=== PATIENT | female | born 1975 | race Hispanic/Latino ===

== ENCOUNTER 2025-01-14 12:42 | Emergency (ER) | payer OTHER ==
--- OUTSIDE RECORDS SUMMARY | 2025-01-14 12:46 | XMS REPORT | Continuity of Care Document ---
Author Name Unknown Address [address] [place] [address] [address] [place] [address] [facility] Address [address] [facility]. [address] [place] [address] Care Team Providers Care Lab Assistant Name Role Phone PCP, PATIENT DOES NOT HAVE A Primary Care Physic purnima Unavailable MILAN CORTEZ Attending Clinician Unavailable MILAN CORTEZ Attending Clinician Unavailable Milan Cortez MD Attending Clinician [phone] Gisselle Alvarez MD Attending Clinician MILAN CORTEZ Admitting Clinician Unavailable Payers Payer Name Policy Type Policy Number Effective Date Expirati on Date Source Problems Condition Name Condition Details Condition Category Status Onset Date Resolution Date Last Treatment Date Treating Clinician Comments Source Obesity (BMI 30-39.9) Obesity (BMI 30-39.9) Disease Active 24 00:00: 00 [facility] Septic shock Septic shock Disease Active 07-30 00:00: 00 [facility] Encounter for chemothera py management Encounter for chemothera py management Disease Active 06-04 00:00: 00 [facility] Malignant neoplasm of cervix, FIGO 2018 IIIC1 Malignant neoplasm of cervix, FIGO 2018 IIIC1 Disease Active 06-04 00:00: 00 [facility] Allergies, Adverse Reactions, Alerts Allergy Name Allergy Type Status Severity Reaction(s) Onset Date Inactive Date Treating Clinician Comments Source OPIOIDS - MORPHINE ANALOGUE S Drug Class Active High ITCHING 12-07 00:00: 00 [facility] Opioids - Morphine Analogue s Drug Allergy Active Rash 12-07 00:00: 00 [facility] Opioids - Morphine Analogue s Drug Allergy Active Rash 1-31 00:00: 00 [facility] Hydrocod one Propensi ty to adverse reaction s Active Nausea and/or Vomiting 07-17 00:00: 00 [facility] HYDROCOD ONE DRUG INGREDI Active N/V 9- 00:00: 00 [facility] PENICILL INS Drug Class Active Rash 15 00:00: 00 [facility] Penicill ins Propensi ty to adverse reaction s Active Rash 05-21 00:00: 00 [facility] Penicill ins Propensi ty to adverse reaction s Active Rash 05-21 00:00: 00 [facility] Social History Social Habit Start Date Stop Date Quantity Comments Source Sexual orientation [facility] History of tobacco use Cigarette Smoker [facility] Alcoholic beverage intake 2024-10-24 00:00:00 2024-10-24 00:00:00 Ex-drinker (finding) [facility] History of Social function 2020-06-12 00:00:00 2020-06-12 00:00:00 [facility] Alcohol intake 2019-12-10 00:00:00 2019-12-10 00:00:00 Ex-drinker (finding) [facility] Cigarettes smoked current (pack per day) - Reported 2019-06-05 00:00:00 2019-06-05 00:00:00 [facility] Cigarette pack-years 2019-06-05 00:00:00 2019-06-05 00:00:00 [facility] Tobacco use and exposure 2019-06-05 00:00:00 2019-06-05 00:00:00 Smokeless tobacco non-user [facility] Sex assigned at 1975 00:00:00 1975 00:00:00 [facility] Smoking Status Start Date Stop Date Source Ex-smoker 2019-06-05 00:00:00 2019-06-05 00:00:00 [facility] Medications Ordered Medication Name Filled Medication Name Start Date Stop Date Current Medication? Ordering Clinician Indication Dosage Frequency Signature (SIG) Comments Components Source maalox/diph enhydrAMINE :lidocaine2 %viscous 1:1:1: suspension (COMPOUNDED ) 2023-11 10:45: 00 10-24 10:44 :00 No 15mL 15 mL, Oral, ONCE, 1 dose, On Tue10/24/24 at 0445, Routine [facility] iopamidol (ISOVUE 370-500 mL) injection 80 mL 2023-11 09:00: 00 10-24 09:00 :00 No [id number] 80mL 80 mL, Intravenou s, ONCE, 1 dose, On Tue10/24/24 at 0300, Routine [facility] ketorolac (TORADOL) injection 30 mg 2023-11 08:15: 00 10-24 07:34 :00 No 30mg 30 mg, Slow IV Push, ONCE, 1 dose, On Tue10/24/24 at 0215, Routine [facility] dicyclomine (BENTYL) injection 20 mg 2023-11 08:15: 00 10-24 07:34 :00 No 20mg 20 mg, Intramuscu lar, ONCE, 1 dose, On Tue10/24/24 at 0215, Routine [facility] ketorolac 10 mg tablet 2023-11 00:00: 00 Yes [id number] 10mg Take 1 tablet by mouth every 6 (six) hours as needed for Pain (scale 7-10). [facility] dicyclomine 20 mg tablet 2023-11 00:00: 00 Yes [id number] 20mg Take 1 tablet by mouth every 6 (six) hours as needed for Abdominal pain. [facility] ondansetron (ZOFRAN) 4 mg tablet 2023-11 00:00: 00 Yes [id number] 4mg Take 1 tablet by mouth every 8 (eight) hours as needed for Nausea and Vomiting (N/V). [facility] pantoprazol e (PROTONIX) 40 mg EC tablet 2023-11 00:00: 00 Yes [id number] 40mg Take 1 tablet by mouth in the morning. [facility] No known medications No Un casandra [facility] Vital Signs Vital Name Observation Time Observation Value Comments S ourpierre Systolic blood pressure 2024-10-24 10:38:00 122 mm[Hg] [facility] Diastolic blood pressure 2024-10-24 10:38:00 89 mm[Hg] [facility] Heart rate 2024-10-24 10:38:00 77 /min [facility] Body temperature 2024-10-24 10:38:00 36.67 Maria E [facility] Respiratory rate 2024-10-24 10:38:00 16 /min [facility] Oxygen saturation in Arterial blood by Pulse oximetry 2024-10-24 10:38:00 100 /min [facility] Body height 2024-10-24 06:52:00 154.9 cm [facility] Body weight 2024-10-24 06:52:00 56.7 kg [facility] BMI 2024-10-24 06:52:00 23.62 kg/m2 [facility] Procedures Procedure Date / Time Performed Performing Clinicia n Source URINALYSIS 2024-10-24 09:40:00 Milan Cortez [facility] CT ABDOMEN PELVIS W CONTRAST 2024-10-24 08:13:30 Milan Cortez [facility] LIPASE 2024-10-24 06:59:00 Milan Cortez [facility] COMP. METABOLIC PANEL (78487) 2024-10-24 06:59:00 Milan Cortez [facility] CBC WITH DIFF 2024-10-24 06:59:00 Milan Cortez [facility] Encounters Start Date/Time End Date/Time Encounter Type Admission Type Attending Clinicians Care Facility Care Department Encounter ID Source 2024-10-24 00:50:00 2024-10-24 04:49:00 Emergency X MILAN CORTEZ W[facility] ERT [id number] [facility] 2024-10-24 00:50:00 2024-10-24 04:49:00 Emergency Milan Cortez [facility] [id number] [facility] 2024-10-24 00:50:00 2024-10-24 00:50:00 Emergency X MILAN CORTEZ W[facility] ERT [id number] [facility] 2021-07-07 00:00:00 2021-07-07 00:00:00 Telephone Gisselle Alvarez [facility] [id number] [facility] Results Test Description Test Time Test Comments Results Result Comments Source CT Abdomen pelvis w contrast 2024-10-07 8 09:16:33 ORDERING PHYSICIAN: MILAN CORTEZ ABDOMEN AND PELVIS CT WITH CONTRAST. DATE: ?10/24/2024 3:13 AM CLINICAL INDICATIONS: ?Abdominal pain, acute, nonlocalized TECHNIQUE: ?Axial computed tomographic images of the abdomen and pelviswere obtained after administration of 100 mL of Omnipaque 350intravenously. CT scan was performed according to ALARA (As Low asReasonably Achievable). COMPARISON: ?None. Abdomen findings: The lung bases are clear. The cardiac apex isunremarkable. Bilateral breast implants are identified. A 1.2 cm hypodense lesion is identified within segment 4 of the liver whichis poorly characterized on this study. This may result from a hemangioma.No intrahepatic biliary ductal dilation or contour nodularity is present.Gallstones are identified the gallbladder. The spleen, pancreas, adrenal glands and kidneys have unremarkable contrastenhanced appearance. The stomach, small bowel and colon demonstrate no evidence for obstructionor inflammation. A normal appendix is present in the right lower quadrant. No adenopathy or free fluid are identified in the abdomen. No acute osseousabnormality is demonstrated. Pelvis findings: The small bowel and colon are normal caliber. The urinarybladder demonstrates no abnormality. The uterus and ovaries have anunremarkable appearance. No adenopathy or free fluid are identified in thepelvis. No acute osseous abnormality is demonstrated. [facility] [id number] 07:28:20* Test Item Value Reference Range Interpretation Comme nts LIPASE (test code = 3545411238) 209 U/L 0-220 Lab Interpretation (test cod e = 82843-3) Normal [facility] [id number] 07:17:57* Test Item Value Reference Range Interpretation Comme nts WBC (test code = 6690-2) 7.48 4.30-11.10 RBC (test code = 789-8) 4.21 3.93-5.25 HGB (test code = 718-7) 12.4 g/dL 11.6-15.0 HCT (test code = 4544-3) 38.1 % 35.7-45.2 MCV (test code = 787-2) 90.5 fL 80.6-95.5 MCH (test code = 785-6) 29.5 pg 25.9-32.8 MCHC (test code = 786-4) 32.5 g/dL 31.6-35.1 RDW-SD (test code = 56765-2) 42.3 fL 39.0-49.9 RDW-CV (test code = 788-0) 12.8 % 12.0-15.5 PLT (test code = 777-3) 383 166-358 H MPV (test code = 32550-1) 8.2 fL 9.5-12.9 L NRBC/100 WBC (test code = 1107763369) 0.0 0.0-10.0 NRBC x10^3 (test code = 5617417457) See_Comment [Automated [employer] ge] The system which generated this result transmitted reference range: 10*3/?L. The reference range was not used to interpret this result as normal/abnormal. GRAN MAT (NEUT) % (test code = 770-8) 62.3 % IMM GRAN % (test code = 9700585560) 0.30 % LYMPH % (test code = 736-9) 27.7 % MONO % (test code = 5905-5) 6.4 % EOS % (test code = 713-8) 2.8 % BASO % (test code = 706-2) 0.5 % GRAN MAT x10^3(ANC) (test code = 1039204329) 4.66 10*3/uL 1.88-7.09 IMM GRAN x10^3 (test code = 0513397811) 0.00-0.06 LYMPH x10^3 (test code = 731-0) 2.07 10*3/uL 1.32-3.29 MONO x10^3 (test code = 742-7) 0.48 10*3/uL 0.33-0.92 EOS x10^3 (test code = 711-2) 0.21 10*3/uL 0.03-0.39 BASO x10^3 (test code = 704-7) 0.04 10*3/uL 0.01-0.07 Lab Interpretation (test code = 72013-3) Abnormal [facility] Notes Date/Time Note Provider Source 2024-10-24 04:48:27 Pt given printed and verbal discharge instructions regarding abdominal pain and calculus of gallbladder. Prescriptions provided. Pt verbalized understanding of instructions, pt awake alert oriented, resp reg unlabored, skin w/d, color appropriate for race, moves all ext well, pt encouraged to follow up with pcp. Advised to seek medical attention for new/prolonged/worsening of symptoms. No adverse reaction to meds given in ER noted upon discharge. PIV d'cd, dressing to site, catheter in tact. Awake, alert oriented, resp reg unlabored, skin w/d, pt leaving amb with steady gait, in no apparent distress. 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 Last BM today Y Lemus RN [facility] 2024-10-24 00:47:[address] [facility] Emergency Department Note Patient Name: Lynn Evans Date of : 1975 49 year old female Treatment Room: TX1/TX1 Primary Care Physician: JERAD [employer] [facility]CTION Patient Escorted by: Self [9] Mode of Arrival: Personal means [1] EMS Treatment Prior to ED Arrival: [facility] treatment: None Travel and Exposure Screening: Symptoms Does patient have any of these symptoms?: (not recorded) Exposure Screening Has patient had contact with someone with a communicable disease in the last month?: (not recorded) Diseases exposed to:: (not recorded) Is Patient ?: (not recorded) Exposure Date: (not recorded) Chief Complaint: Chief Complaint Patient presents with Abdominal Pain History of Present Illness: Lynn Evans is a 49 year old female who presents to the ED for evaluation of abdominal pain X 2 hours. Pain is achy and cramps. Pt reports pain is 10/10 and pt took Pepto Bismol and MOM without relief of pain. No fever or chills. No diarrhea or constipation. Denies any urinary symptoms. Pt does not drink any alcholic beverages. Smokes about 1/2 PPD. Denies any illicit drug use. No melena. 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 Abdominal Pain Pain location: Generalized Pain quality: aching and cramping Pain radiates to: Epigastric region and suprapubic region Pain severity: Severe Onset quality: Gradual Duration: 2 hours Timing: Constant Chronicity: New Context: not alcohol use, not awakening from sleep, not diet changes, not eating, not laxative use, not medication withdrawal, not previous surgeries, not recent illness, not recent travel, not retching, not sick contacts, not suspicious food intake and not trauma Relieved by: None tried Worsened by: Nothing Ineffective treatments: None tried Associated symptoms: nausea Associated symptoms: no constipation, no diarrhea, no dysuria, no fever, no hematemesis, no hematochezia, no hematuria, no melena, no shortness of breath, no sore throat, no vaginal bleeding, no vaginal discharge and no vomiting Risk factors: no alcohol abuse, no aspirin use, not elderly, has not had multiple surgeries, no NSAID use, not obese, not and no recent hospitalization Past Medical History/Immunizations: Past Medical History: Diagnosis Date Anxiety Cancer Depression Tetanus received in last 5 years: Yes Childhood immunizations: Up-to-date Allergies: Allergies Allergen Reactions Opioids - Morphine Analogues Itching and Rash Hydrocodone Nausea and/or Vomiting Pcn [Penicillins] Rash Past Social History: Tobacco Use Former; Cigarettes: 2009 - 2010; Smoked 1 pack/day for 1 year Smokeless Tobacco: Never used smokeless tobacco. Alcohol Use Not Currently. Drug Use Never. Sexual Activity Not currently sexually active. Past Surgical History: Past Surgical History: Procedure Laterality Date AUGMENTATION MAMMOPLASTY 2010 INTRACAVITARY BRACHYTHERAPY (SHX) N/A 08/22/2019 Surgeon: Tana Pearl MD; Location: [facility] Review of Systems: Review of Systems Constitutional: Negative. Negative for fever. HENT: Negative. Negative for sore throat. Eyes: Negative. Respiratory: Negative. Negative for shortness of breath. Breasts: Negative. Cardiovascular: Negative. Gastrointestinal: Positive for abdominal pain and nausea. Negative for constipation, diarrhea, hematemesis, hematochezia, melena and vomiting. Genitourinary: Negative. Negative for dysuria, hematuria, vaginal bleeding and vaginal discharge. Musculoskeletal: Negative. Skin: Negative. Neurological: Negative. Psychiatric/Behavioral: Negative. Endocrine: Endocrine negative Physical Exam: ED Triage Vitals [10/24/24 0052] Weight 56.7 kg (125 lb) Actual or estimated Actual Height 1.549 m (5' 1") BP 105/43 Pulse 75 Resp 20 Temp 36.4 ?C (97.5 ?F) Temp source Oral SpO2 100 % Measured on Room air Physical Exam Vitals and nursing note reviewed. Constitutional: General: She is not in acute distress. Appearance: Normal appearance. She is well-developed and normal weight. She is not ill-appearing, toxic-appearing or diaphoretic. HENT: Head: Normocephalic and atraumatic. Nose: Nose normal. No rhinorrhea. Mouth/Throat: Mouth: Mucous membranes are moist. Pharynx: Oropharynx is clear. No oropharyngeal exudate or posterior oropharyngeal erythema. Eyes: General: No scleral icterus. Right eye: No discharge. Left eye: No discharge. Conjunctiva/sclera: Conjunctivae normal. Pupils: Pupils are equal, round, and reactive to light. Neck: Thyroid: No thyromegaly. Cardiovascular: Rate and Rhythm: Normal rate and regular rhythm. Pulses: Normal pulses. Heart sounds: Normal heart sounds. No murmur heard. Pulmonary: Effort: Pulmonary effort is normal. No respiratory distress. Breath sounds: Normal breath sounds. No stridor. No wheezing, rhonchi or rales. Chest: Chest wall: No tenderness. Abdominal: General: Bowel sounds are normal. There is no distension. Palpations: Abdomen is soft. There is no mass. Tenderness: There is no abdominal tenderness. There is no right CVA tenderness, left CVA tenderness, guarding or rebound. Musculoskeletal: General: No swelling, tenderness, deformity or signs of injury. Normal range of motion. Cervical back: Normal range of motion and neck supple. No rigidity or tenderness. Lymphadenopathy: Cervical: No cervical adenopathy. Skin: General: Skin is warm and dry. Capillary Refill: Capillary refill takes less than 2 seconds. Coloration: Skin is not jaundiced or pale. Findings: No bruising, erythema, lesion or rash. Neurological: General: No focal deficit present. Mental Status: She is alert and oriented to person, place, and time. Cranial Nerves: No cranial nerve deficit. Motor: No weakness or abnormal muscle tone. Coordination: Coordination normal. Gait: Gait normal. Psychiatric: Behavior: Behavior normal. Thought Content: Thought content normal. Judgment: Judgment normal. Radiology: CT Abdomen pelvis w contrast Final Result ORDERING PHYSICIAN: MILAN CORTEZ ABDOMEN AND PELVIS CT WITH CONTRAST. DATE: 10/24/2024 3:13 AM CLINICAL INDICATIONS: Abdominal pain, acute, nonlocalized TECHNIQUE: Axial computed tomographic images of the abdomen and pelvis were obtained after administration of 100 mL of Omnipaque [address] scan was performed according to ALARA (As Low as Reasonably Achievable). COMPARISON: None. Abdomen findings: The lung bases are clear. The cardiac apex is unremarkable. Bilateral breast implants are identified. A 1.2 cm hypodense lesion is identified within segment 4 of the liver which is poorly characterized on this study. This may result from a hemangioma. No intrahepatic biliary ductal dilation or contour nodularity is present. Gallstones are identified the gallbladder. The spleen, pancreas, adrenal glands and kidneys have unremarkable contrast enhanced appearance. The stomach, small bowel and colon demonstrate no evidence for obstruction or inflammation. A normal appendix is present in the right lower quadrant. No adenopathy or free fluid are identified in the abdomen. No acute osseous abnormality is demonstrated. Pelvis findings: The small bowel and colon are normal caliber. The urinary bladder demonstrates no abnormality. The uterus and ovaries have an unremarkable appearance. No adenopathy or free fluid are identified in the pelvis. No acute osseous abnormality is demonstrated. IMPRESSION 1. No CT evidence for acute abnormality within the abdomen and pelvis is visualized. Specifically, no evidence for acute inflammatory process or appendicitis is identified. 2. Gallstones are identified in the gallbladder. 3. A 1.3 cm hypodense lesion is identified within segment 4 of the liver which is poorly characterized on this study. This may result from a hepatic hemangioma. A nonemergent contrast enhanced MRI of the abdomen could be obtained for further characterization as clinically indicated. RL: [id number] Lab Results: Lab Results COMP. METABOLIC PANEL ([id number]) - Abnormal Result Value Ref Range NA 134 (*) 135 - 145 mmol/L K 3.5 3.5 - 5.0 mmol/L CL 98 98 - 108 mmol/L CO2 TOTAL 28 23 - 31 mmol/L AGAP 8 2 - 16 BUN 9 7 - 23 mg/dL GLUCOSE 105 70 - 110 mg/dL CREATININE 0.80 0.50 - 1.04 mg/dL TOTAL BILI 0.1 0.1 - 1.1 mg/dL CALCIUM 9.8 8.6 - 10.6 mg/dL T PROTEIN 7.7 6.3 - 8.2 g/dL ALBUMIN 4.3 3.5 - 5.0 g/dL ALK PHOS 126 (*) 34 - 122 U/L ALTv 16 5 - 35 U/L AST(SGOT) 23 13 - 40 U/L eGFR 89.3 mL/min/1.73m2 CBC WITH DIFF - Abnormal WBC 7.48 4.30 - 11.10 10*3/?L RBC 4.21 3.93 - 5.25 10*6/?L HGB 12.4 11.6 - 15.0 g/dL HCT 38.1 35.7 - 45.2 % MCV 90.5 80.6 - 95.5 fL MCH 29.5 25.9 - 32.8 pg MCHC 32.5 31.6 - 35.1 g/dL RDW-SD 42.3 39.0 - 49.9 fL RDW-CV 12.8 12.0 - 15.5 % PLT 383 (*) 166 - 358 10*3/?L MPV 8.2 (*) 9.5 - 12.9 fL NRBC/100 WBC 0.0 0.0 - 10.0 /100 WBCs NRBC x10 3 <0.01 10*3/?L GRAN MAT (NEUT) % 62.3 % IMM GRAN % 0.30 % LYMPH % 27.7 % MONO % 6.4 % EOS % 2.8 % BASO % 0.5 % GRAN MAT x10 3 (ANC) 4.66 1.88 - 7.09 10*3/uL IMM GRAN x10 3 <0.03 0.00 - 0.06 10*3/uL LYMPH x10 3 2.07 1.32 - 3.29 10*3/uL MONO x10 3 0.48 0.33 - 0.92 10*3/uL EOS x10 3 0.21 0.03 - 0.39 10*3/uL BASO x10 3 0.04 0.01 - 0.07 10*3/uL URINALYSIS - Abnormal APPEARANCE Clear Clear COLOR Straw (*) Yellow PH 8.0 4.8 - 8.0 SP GRAVITY 1.027 1.003 - 1.030 GLU U QUAL Normal Normal BLOOD Negative Negative KETONES Negative Negative PROTEIN Negative Negative UROBILIN Normal Normal BILIRUBIN Negative Negative NITRITE Negative Negative LEUK CECILIA 250/uL (*) Negative RBC/HPF 1 0 - 3 HPF WBC/HPF 4 0 - 5 HPF BACTERIA Negative Negative SQ EPITH 2 HPF HYAL CAST 1 <=2 LPF LIPASE - Normal LIPASE 209 0 - 220 U/L Orders and Treatments: Orders Placed This Encounter Procedures CT Abdomen pelvis w contrast Complete Metabolic Panel CBC with Differential Lipase, Serum Urinalysis Orders Placed This Encounter Medications dicyclomine (BENTYL) injection 20 mg ketorolac (TORADOL) injection 30 mg iopamidol (ISOVUE 370-500 mL) injection 80 mL ketorolac 10 mg tablet dicyclomine 20 mg tablet ondansetron (ZOFRAN) 4 mg tablet First Provider Eval: ED Events Date/Time Event User Comments 10/24/24 6553 Medical Screening Begins MILAN CORTEZ MD -- 10/24/24 0055 First Provider Evaluation MILAN CORTEZ MD -- ED COURSE Diagnosis/Impression as of 10/24/24431 Abdominal pain, unspecified abdominal location Calculus of gallbladder without cholecystitis without obstruction Procedures: Procedures MDM: Medical Decision Making Lynn Evans is a 49 year old female who presents to the ED with abdominal pain X 2 hours Problems Addressed: Abdominal pain, unspecified abdominal location: acute illness or injury Calculus of gallbladder without cholecystitis without obstruction: chronic illness or injury Amount and/or Complexity of Data Reviewed External Data Reviewed: notes. Labs: ordered. Decision-making details documented in ED Course. Radiology: ordered. Decision-making details documented in ED Course. Risk OTC drugs. Prescription drug management. Risk Details: Will refer to PCP/Gastoroenterology Flowsheet Documentation: Scoring Tools: No data recorded Disposition/Condition: ED Disposition ED Disposition Discharge Condition Stable Comment -- Discharge Medications: Patient's Medications START taking these medications DICYCLOMINE 20 MG TABLET Take 1 tablet by mouth every 6 (six) hours as needed for Abdominal pain. KETOROLAC 10 MG TABLET Take 1 tablet by mouth every 6 (six) hours as needed for Pain (scale 7-10). ONDANSETRON (ZOFRAN) 4 MG TABLET Take 1 tablet by mouth every 8 (eight) hours as needed for Nausea and Vomiting (N/V). CONTINUE taking these medications which have NOT CHANGED No medications on file START taking Modified Medications as Prescribed No medications on file STOP taking these medications No medications on file Follow-up: Contact information for follow-up [facility] Specialty: Gastroenterology [address] [facility] [id number] Electronically signed by: Milan Cortez MD 10/24/24431 [facility]
[2025-01-14] MEDS ORDERED: IBUPROFEN 200 MG TAB PO ONE (14:24)
[2025-01-14] MEDS ORDERED: LIDOCAINE 2% MPF 5 ML VIAL ONE (14:25)
[2025-01-14] MEDS ORDERED: ACETAMINOPHEN 325 MG TABLET ONE (14:25)
--- NOTE | 2025-01-14 14:32 | RAD REPORT ---
Exam:Pelvis CLINICAL HISTORY: Pelvic pain FINDINGS: No fracture or dislocation seen Overlying artifact obscures portions of the left pubic bone
--- NOTE | 2025-01-14 14:35 | RAD REPORT ---
Exam:Femur Right CLINICAL HISTORY: Right leg pain. FINDINGS: No fracture is seen. Laceration anterior lower right knee
[2025-01-14] MEDS ORDERED: LIDOCAINE 2% W/EPI 1:200,000 MPF 20 ML VIAL IM ONE (15:29)
--- NOTE | 2025-01-14 15:57 | ER ---
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 Laceration noted hb to right knee, bleeding controlled. Coronavirus screen: At this time, the client does not indicate any symptoms associated with coronavirus-19. Ebola Screen: No symptoms or risks identified at this time. Initial Sepsis Screen: Does the patient meet any 2 criteria? No. Patient's initial sepsis screen is negative. Does the patient have a suspected source of infection? No. Patient's initial sepsis screen is negative. Risk Assessment: Do you want to hurt yourself or someone else? Patient reports no desire to harm self or others. Onset of symptoms was January 14, 2025. 13:17 Method Of Arrival: Wheelchair hb 13:17 Acuity: LIAT 4 hb Triage Assessment: 14:13 Injury Description: fall. ap3 16:16 General: Appears in no apparent distress. Behavior is calm, cooperative, appropriate ap3 for age. Pain: Complains of pain in right leg. Neuro: Level of Consciousness is awake, alert, obeys commands, Oriented to person, place, time, situation, Appropriate for age. Cardiovascular: Patient's skin is warm and dry. Respiratory: Airway is patent Respiratory effort is even, unlabored, Respiratory pattern is regular, symmetrical. Derm: Wound noted right knee. 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 - Infectious Disease History:: Denies. - Social history:: Smoking status: Patient reports the use of cigarette tobacco products. Screenin:13 [facility] ED Fall Risk Assessment (Adult) History of falling in the last 3 months, ap3 including since admission Yes- single mechanical fall (1 pt) Confusion or Disorientation No (0 pts) Intoxicated or Sedated No (0 pts) Impaired Gait Yes (1 pt) Mobility Assist Device Used No (0 pt) Altered Elimination No (0 pt) Score/Fall Risk Level 0 - 2 = Low Risk Oriented to surroundings, Maintained a safe environment, Educated pt \T\ family on fall prevention, incl call for assistance when getting out of bed, Assessed \T\ reinforced patient's understanding of fall precautions, Hourly rounding (assess needs \T\ fall precautionary measures) done, Used ambulatory aids as needed (educated on \T\ assisted with). Abuse screen: Denies threats or abuse. Nutritional screening: No deficits noted. Tuberculosis screening: No symptoms or risk factors identified. Assessment: 14:12 Pain: Complains of pain in right knee. Neuro: Level of Consciousness is awake, alert, ap3 obeys commands, Oriented to person, place, time, situation. Cardiovascular: Patient's skin is warm and dry. Respiratory: Airway is patent Respiratory effort is even, unlabored, Respiratory pattern is regular, symmetrical. Musculoskeletal: Reports pain in right knee. Vital Signs: 13:17 BP 100 / 60; Pulse 93; Resp 16; Temp 97.8; Pulse Ox 100% on R/A; Weight 58.97 kg; hb Height 5 ft. 1 in. ; Pain 10/10; 13:17 Body Mass Index 24.56 (58.97 kg, 154.94 cm) hb 13:17 Pain Scale: Adult hb ED Course: 12:46 Patient arrived in ED. cj3 12:46 Charan Martinez PA is PHCP. cp 12:46 Charan Franklin MD is Attending Physician. cp 13:19 Triage completed. hb 13:20 Arm band placed on. hb 14:12 Cristy Dolan, RN is Primary Nurse. ap3 14:13 Patient has correct armband on for positive identification. Bed in low position. Call ap3 light in reach. Adult w/ patient. 14:13 Provided Education on: call light and fall risk education. ap3 14:14 XRAY Pelvis In Process Unspecified. EDMS 14:14 XRAY Femur RIGHT In Process Unspecified. EDMS 16:16 No provider procedures requiring assistance completed. Patient did not have IV access ap3 during this emergency room visit. Administered Medications: 14:27 Drug: Acetaminophen PO 650 mg PO once Route: PO; ap3 16:16 Follow up: Response: No adverse reaction; Pain is decreased ap3 14:27 Drug: Ibuprofen PO 600 mg PO once Route: PO; ap3 16:16 Follow up: Response: No adverse reaction; Pain is decreased ap3 15:56 Drug: Lidocaine Infiltration (2 %) 20 ml 5 ml Infiltration once; to bedside. with ap3 epinephrine {Note: by florencia bonilla.} Volume: 5 ml; Route: Infiltration; Medication: 16:17 VIS not applicable for this client. ap3 Outcome: 15:56 Discharge ordered by . cp 16:17 Discharged to home ambulatory, with family, ap3 16:17 Condition: good 16:17 Discharge instructions given to patient, Instructed on discharge instructions, follow up and referral plans. medication usage, Demonstrated understanding of instructions, follow-up care, medications, Prescriptions given X 2, 16:17 Patient left the ED. ap3 Signatures: Dispatcher [employer] EDMS Charan Martinez PA PA cp Baxter, Heather, RN RN hb Prokisch, Amanda, RN RN ap3 Nicole Colon 3
--- NOTE | 2025-01-14 15:57 | EDPHYS ---
Physician Documentation [facility] Name: Lottie Jason Age: 49 yrs Sex: Female : 1975 Arrival Date: 01/14/2025 Time: 12:42 Bed 10 Private MD: TODD Physician Charan Franklin HPI: 01/14 13:30 This 49 yrs old Female presents to ER via Wheelchair with complaints of Knee cp Injury. 13:30 The patient presents with an injury, a laceration, irregular, pain, that is acute. The cp complaints affect the right knee. Context: slip and fall with knee striking metal grating. 13:30 Onset: The symptoms/episode began/occurred just prior to arrival. Associated signs and cp symptoms: The patient has no apparent associated signs or symptoms. Treatment prior to arrival includes: pressure dressing. 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 - Infectious Disease History:: Denies. - Social history:: Smoking status: Patient reports the use of cigarette tobacco products. ROS: 13:35 MS/extremity: Positive for laceration, pain, tenderness, of the right knee, Negative cp for paresthesias, 13:35 Eyes: Negative for injury, pain, redness, and discharge, cp 13:35 Constitutional: Negative for body aches, chills, fever, 13:35 Neck: Negative for pain with movement, pain at rest, 13:35 Respiratory: Negative for cough, shortness of breath, wheezing, 13:35 Back: Negative for pain at rest, pain with movement, 13:35 Neuro: Negative for altered mental status, headache, numbness, weakness, 13:35 All other systems are negative, Exam: 13:40 Constitutional: The patient appears in no acute distress, alert, awake, well developed, cp well nourished, uncomfortable, 13:40 Head/Face: Normocephalic, atraumatic. cp 13:40 Neck: ROM/movement: is normal, is supple, without pain, no range of motions limitations, 13:40 Chest/axilla: Inspection: normal, 13:40 Cardiovascular: Rate: normal, 13:40 Respiratory: the patient does not display signs of respiratory distress, Respirations: normal, no use of accessory muscles, no retractions, labored breathing, is not present, 13:40 Abdomen/GI: Exam negative for discomfort, distension, guarding, Inspection: abdomen appears normal, 13:40 Back: pain, is absent, ROM is normal, 13:40 Musculoskeletal/extremity: Extremities: noted in the right knee: laceration, pain, tenderness, There is no evidence of decreased ROM, deformity, ROM: limited passive range of motion due to pain, in the right knee, Perfusion: the extremity is normally perfused throughout, 13:40 Skin: injury, laceration(s), the wound is approximately 5.5 cm(s), of the anterior aspect of right knee below patella, the second wound is approximately 3 cm(s), of the anterior aspect of right patella, that can be described as clean, no foreign body, linear, with mild bleeding, 13:40 Neuro: Orientation: to person, place \T\ time. Mentation: is normal, Motor: moves all cp fours, strength is normal, Vital Signs: 13:17 BP 100 / 60; Pulse 93; Resp 16; Temp 97.8; Pulse Ox 100% on R/A; Weight 58.97 kg; hb Height 5 ft. 1 in. ; Pain 10/10; 13:17 Body Mass Index 24.56 (58.97 kg, 154.94 cm) hb 13:17 Pain Scale: Adult hb Laceration: 15:55 Wound Repair of 3cm ( 1.2in ) subcutaneous laceration to anterior aspect right patella. cp Linear shaped.. Skin/tissue flap noted.. Distal neuro/vascular/tendon intact. Anesthesia: Local anesthetic administered with 3 mls of 2% lidocaine. Wound prep: Moderate cleansing by me, Wound irrigation by me. Skin closed with 5 1-0 [place] using staple gun. Dressed with Bacitracin, 4x4's. Patient tolerated well. 15:56 Wound Repair of 5.5cm ( 2.2in ) subcutaneous laceration to anterior aspect of right cp knee below patella. Linear shaped.. Distal neuro/vascular/tendon intact. Anesthesia: Wound infiltrated with 5 mls of 2% lidocaine. Wound prep: Moderate cleansing by me, Wound irrigation by me. Skin closed with 10 1-0 [place] using staple gun. Dressed with Bacitracin, 4x4's. Patient tolerated well. MDM: 13:17 Medical Screening Exam initiated cp 15:55 Data reviewed: vital signs, nurses notes, radiologic studies, plain films, and as a cp result, I will discharge patient. 15:55 Differential diagnosis: dislocation, open fracture, closed fracture, contusion, simple cp laceration, joint capsule injury. I considered the following discharge prescriptions or medication management in the emergency department Medications were administered in the Emergency Department. See MAR. Independent interpretation of the following test(s) in the Emergency Department X-Ray: My interpretation is images of right knee negative for fracture. Counseling: I had a detailed discussion with the patient and/or guardian regarding the historical points, exam findings, and any diagnostic results supporting the discharge/admit diagnosis, radiology results, the need for outpatient follow up, a family practitioner, to return to the emergency department if symptoms worsen or persist or if there are any questions or concerns that arise at home. Response to treatment: the patient's symptoms have markedly improved after treatment, and as a result, I will discharge patient. 01/14 13:19 Order name: XRAY Pelvis; Complete Time: 15:18 cp 01/14 15:18 Interpretation: Report reviewed. 01/14 13:19 Order name: XRAY Femur RIGHT; Complete Time: 15:18 cp 01/14 15:19 Interpretation: Report reviewed. 01/14 14:20 Order name: Wound Care; Complete Time: 15:56 cp 01/14 14:20 Order name: Dressing - Wound; Complete Time: 15:55 cp 01/14 14:20 Order name: Gloves, Sterile; Complete Time: 14:22 cp 01/14 14:20 Order name: Setup Suture Tray; Complete Time: 14:22 cp 01/14 15:53 Order name: Knee Immobilizer; Complete Time: 16:16 cp 01/14 15:55 Order name: Wound dressing; Complete Time: 16:16 cp Administered Medications: 14:27 Drug: Acetaminophen PO 650 mg PO once Route: PO; ap3 16:16 Follow up: Response: No adverse reaction; Pain is decreased ap3 14:27 Drug: Ibuprofen PO 600 mg PO once Route: PO; ap3 16:16 Follow up: Response: No adverse reaction; Pain is decreased ap3 15:56 Drug: Lidocaine Infiltration (2 %) 20 ml 5 ml Infiltration once; to bedside. with ap3 epinephrine {Note: by florencia bonilla.} Volume: 5 ml; Route: Infiltration; Disposition Summary: 01/14/25 15:56 Discharge Ordered Notes: Location: Home cp Problem: new cp Symptoms: have improved cp Condition: Stable cp Diagnosis - Laceration without foreign body of knee - right cp - Fall on same level from slipping, tripping and stumbling with subsequent striking cp against object Followup: cp - With: Private Physician - When: 10 - 14 days - Reason: Staple/Suture removal Discharge Instructions: - Discharge Summary Sheet cp - Laceration Care, Adult cp Forms: - Medication Reconciliation Form cp - Antibiotic Education cp - Prescription Opioid Use cp - Patient Portal Instructions cp - Leadership Thank You Letter cp Prescriptions: - Cephalexin 500 mg Oral Capsule - take 1 capsule ORAL route every 8 hours for 10 days; 30 capsule; Refills: 0, cp Product Selection Permitted - Ibuprofen 800 mg Oral Tablet - take 1 tablet ORAL route every 8 hours As needed take with food; 30 tablet; cp Refills: 0, Product Selection Permitted Signatures: Dispatcher [employer] [facility] Charan Martinez PA PA cp Kat Riggins RN RN Cristy Dolan RN RN ap3 Corrections: (The following items were deleted from the chart) 13:20 13:20 Femur Right+RAD.RAD.BRZ ordered. [facility] EDNY 01/15 13:31 03 13:40 Musculoskeletal/extremity: Extremities: noted in the right knee: cp laceration, pain, tenderness, There is no evidence of decreased ROM, deformity, ROM: limited passive range of motion due to pain, in the right knee, Perfusion: the extremity is normally perfused throughout, 01/15 13:31 03 13:40 Skin: injury, laceration(s), the wound is approximately 5.5 cm(s), of the cp anterior aspect of right knee below patella, that can be described as clean, no foreign body, linear, with mild bleeding, cp 01/15 13:35 13:33 Wound Repair of 3cm ( 1.2in ) subcutaneous laceration to anterior aspect right cp patella. Linear shaped.. Skin/tissue flap noted.. Distal neuro/vascular/tendon intact. Anesthesia: Local anesthetic administered with 3 mls of 2% lidocaine. Wound prep: Moderate cleansing by me, Wound irrigation by me. Skin closed with 5 1-0 [place] using staple gun. Dressed with Bacitracin, 4x4's. Patient tolerated well. cp
[2025-01-14 16:33] VITALS: BP 100/60; TEMP 97.8; O2SAT 100
== END 2025-01-14 16:17 | disposition home or self-care (01) ==
LOC: ER 12:42
DX: S81.011A Laceration without foreign body, right knee, initial encounter (principal); W01.118A Fall on same level from slipping, tripping and stumbling with subsequent striking against other sharp object, initial encounter; Z72.0 Tobacco use
CPT/HCPCS: 72170; 99283; J2003

== ENCOUNTER 2025-01-31 17:44 | Emergency (ER) | payer OTHER ==
--- OUTSIDE RECORDS SUMMARY | 2025-01-31 17:48 | XMS REPORT | Continuity of Care Document ---
Author Name Unknown Address [address] [place] [address] [address] [place] [address] [facility] Address [address] [place] [address] Care Team Providers Care Almond Sorter Name Role Phone PCP, PATIENT DOES NOT HAVE A Primary Care Physic purnima Unavailable MILAN CORTEZ Attending Clinician Unavailable MILAN CORTEZ Attending Clinician Unavailable Milan Cortez MD Attending Clinician Gisselle Alvarez MD Attending Clinician MILAN CORTEZ Admitting Clinician Unavailable Payers Payer Name Policy Type Policy Number Effective Date Expirati on Date Source Problems Condition Name Condition Details Condition Category Status Onset Date Resolution Date Last Treatment Date Treating Clinician Comments Source Obesity (BMI 30-39.9) Obesity (BMI 30-39.9) Disease Active 24 00:00: 00 [facility] Septic shock Septic shock Disease Active 07-30 00:00: 00 [facility] Encounter for chemothera py management Encounter for chemothera py management Disease Active 06-04 00:00: 00 [facility] Malignant neoplasm of cervix, FIGO 2018 IIIC1 Malignant neoplasm of cervix, FIGO 2018 IIIC1 Disease Active 06-04 00:00: 00 [facility] Allergies, Adverse Reactions, Alerts Allergy Name Allergy Type Status Severity Reaction(s) Onset Date Inactive Date Treating Clinician Comments Source OPIOIDS - MORPHINE ANALOGUE S Drug Class Active High ITCHING 12-07 00:00: 00 [facility] Opioids - Morphine Analogue s Drug Allergy Active Rash 12-07 00:00: 00 [facility] Opioids - Morphine Analogue s Drug Allergy Active Rash 1-31 00:00: 00 [facility] Hydrocod one Propensi ty to adverse reaction s Active Nausea and/or Vomiting 07-17 00:00: 00 [facility] HYDROCOD ONE DRUG INGREDI Active N/V 9- 00:00: 00 [facility] PENICILL INS Drug Class Active Rash 15 00:00: 00 [facility] Penicill ins Propensi ty to adverse reaction s Active Rash 05-21 00:00: 00 [facility] Penicill ins Propensi ty to adverse reaction s Active Rash 05-21 00:00: 00 [facility] Social History Social Habit Start Date Stop Date Quantity Comments Source Sexual orientation U [facility] History of tobacco use Cigarette Smoker [facility] Alcoholic beverage intake 2024-10-24 00:00:00 2024-10-24 00:00:00 Ex-drinker (finding) [facility] History of Social function 2020-06-12 00:00:00 2020-06-12 00:00:00 [facility] Alcohol intake 2019-12-10 00:00:00 2019-12-10 00:00:00 Ex-drinker (finding) [facility] Cigarettes smoked current (pack per day) - Reported 2019-06-05 00:00:00 2019-06-05 00:00:00 [facility] Cigarette pack-years 2019-06-05 00:00:00 2019-06-05 00:00:00 [facility] Tobacco use and exposure 2019-06-05 00:00:00 2019-06-05 00:00:00 Smokeless tobacco non-user [facility] Sex assigned at 1975 00:00:00 1975 00:00:00 [facility] Smoking Status Start Date Stop Date Source Ex-smoker 2019-06-05 00:00:00 2019-06-05 00:00:00 U [facility] Medications Ordered Medication Name Filled Medication Name Start Date Stop Date Current Medication? Ordering Clinician Indication Dosage Frequency Signature (SIG) Comments Components Source maalox/diph enhydrAMINE :lidocaine2 %viscous 1:1:1: suspension (COMPOUNDED ) 2023-11 10:45: 00 10-24 10:44 :00 No 15mL 15 mL, Oral, ONCE, 1 dose, On Tue10/24/24 at 0445, Routine [facility] iopamidol (ISOVUE 370-500 mL) injection 80 mL 2023-11 09:00: 00 10-24 09:00 :00 No [id number] 80mL 80 mL, Intravenou s, ONCE, 1 dose, On Tue10/24/24 at 0300, Routine [facility] ketorolac (TORADOL) injection 30 mg 2023-11 08:15: 00 10-24 07:34 :00 No 30mg 30 mg, Slow IV Push, ONCE, 1 dose, On Tue10/24/24 at 0215, Routine [facility] dicyclomine (BENTYL) injection 20 mg 2023-11 08:15: 00 10-24 07:34 :00 No 20mg 20 mg, Intramuscu lar, ONCE, 1 dose, On Tue10/24/24 at 0215, Routine [facility] ketorolac 10 mg tablet 2023-11 00:00: 00 Yes [id number] 10mg Take 1 tablet by mouth every 6 (six) hours as needed for Pain (scale 7-10). [facility] dicyclomine 20 mg tablet 2023-11 00:00: 00 Yes [id number] 20mg Take 1 tablet by mouth every 6 (six) hours as needed for Abdominal pain. [facility] ondansetron (ZOFRAN) 4 mg tablet 2023-11 00:00: 00 Yes [id number] 4mg Take 1 tablet by mouth every 8 (eight) hours as needed for Nausea and Vomiting (N/V). [facility] pantoprazol e (PROTONIX) 40 mg EC tablet 2023-11 00:00: 00 Yes [id number] 40mg Take 1 tablet by mouth in the morning. [facility] No known medications No Un casandra [facility] Vital Signs Vital Name Observation Time Observation Value Comments S ourpierre Systolic blood pressure 2024-10-24 10:38:00 122 mm[Hg] [facility] Diastolic blood pressure 2024-10-24 10:38:00 89 mm[Hg] [facility] Heart rate 2024-10-24 10:38:00 77 /min [facility] Body temperature 2024-10-24 10:38:00 36.67 Maria E [facility] Respiratory rate 2024-10-24 10:38:00 16 /min [facility] Oxygen saturation in Arterial blood by Pulse oximetry 2024-10-24 10:38:00 100 /min [facility] Body height 2024-10-24 06:52:00 154.9 cm [facility] Body weight 2024-10-24 06:52:00 56.7 kg [facility] BMI 2024-10-24 06:52:00 23.62 kg/m2 [facility] Procedures Procedure Date / Time Performed Performing Clinicia n Source URINALYSIS 2024-10-24 09:40:00 Milan Cortez [facility] CT ABDOMEN PELVIS W CONTRAST 2024-10-24 08:13:30 Milan Cortez [facility] LIPASE 2024-10-24 06:59:00 Milan Cortez [facility] COMP. METABOLIC PANEL (37158) 2024-10-24 06:59:00 Milan Cortez [facility] CBC WITH DIFF 2024-10-24 06:59:00 Milan Cortez [facility] Encounters Start Date/Time End Date/Time Encounter Type Admission Type Attending Clinicians Care Facility Care Department Encounter ID Source 2024-10-24 00:50:00 2024-10-24 04:49:00 Emergency X MILAN CORTEZ [facility] ERT [id number] [facility] 2024-10-24 00:50:00 2024-10-24 04:49:00 Emergency Milan Cortez [facility] [id number] [facility] 2024-10-24 00:50:00 2024-10-24 00:50:00 Emergency X MILAN CORTEZ [facility] ERT [id number] [facility] 2021-07-07 00:00:00 2021-07-07 00:00:00 Telephone Gisselle Alvarez [facility] [id number] [facility] Results Test Description Test Time [...] thepelvis. No acute osseous abnormality is demonstrated. [facility] [id number] 07:28:20* Test Item Value Reference Range Interpretation Comme nts LIPASE (test code = 0689753583) 209 U/L 0-220 Lab Interpretation (test cod e = 66034-1) Normal [facility] [id number] 07:17:57* Test Item Value Reference Range Interpretation [...] 32.5 g/dL 31.6-35.1 RDW-SD (test code = 74617-9) 42.3 fL 39.0-49.9 RDW-CV (test code = 788-0) 12.8 % 12.0-15.5 PLT (test code = 777-3) 383 166-358 H MPV (test code = 08018-9) 8.2 fL 9.5-12.9 L NRBC/100 WBC (test code = 2754739928) 0.0 0.0-10.0 NRBC x10^3 (test code = 3725644681) See_Comment [Automated Insightsa ge] The system which generated this result transmitted reference range: 10*3/?L. The reference range was not used to interpret this result as normal/abnormal. GRAN MAT (NEUT) % (test code = 770-8) 62.3 % IMM GRAN % (test code = 0502839507) 0.30 % LYMPH % (test code = 736-9) 27.7 % MONO % (test code = 5905-5) 6.4 % EOS % (test code = 713-8) 2.8 % BASO % (test code = 706-2) 0.5 % GRAN MAT x10^3(ANC) (test code = 2268081732) 4.66 10*3/uL 1.88-7.09 IMM GRAN x10^3 (test code = 6126026860) 0.00-0.06 LYMPH x10^3 (test code = 731-0) 2.07 10*3/uL 1.32-3.29 MONO x10^3 (test code = 742-7) 0.48 10*3/uL 0.33-0.92 EOS x10^3 (test code = 711-2) 0.21 10*3/uL 0.03-0.39 BASO x10^3 (test code = 704-7) 0.04 10*3/uL 0.01-0.07 Lab Interpretation (test code = 38467-0) Abnormal [facility] Notes Date/Time Note Provider Source 2024-10-24 04:48:27 [...] with steady gait, in no apparent distress. 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 METABOLIC PANEL (80166) - Abnormal Result Value Ref Range NA [...] ED Events Date/Time Event User Comments 10/24/24 0980 Medical Screening Begins MILAN CORTEZ MD -- [...] on file Follow-up: Contact information for follow-up [facility] [address] [facility] [address] Electronically signed by: Milan Cortez MD 10/24/24431 [facility]
--- NOTE | 2025-01-31 18:05 | ER ---
Nurse's Notes [facility] Name: Lottie Jason Age: 49 yrs Sex: Female : 1975 Arrival Date: 01/31/2025 Time: 17:44 Bed 12 Private MD: Diagnosis: Encounter for removal of susi Presentation: 01/31 17:51 Chief complaint: Patient states: Needs susi removed from R knee. Coronavirus screen: ll1 Client denies travel out of the [place] in the last 14 days. At this time, the client does not indicate any symptoms associated with coronavirus-19. Ebola Screen: Patient denies travel to an Ebola-affected area in the 21 days before illness onset. Initial Sepsis Screen: Does the patient meet any 2 criteria? No. Patient's initial sepsis screen is negative. Does the patient have a suspected source of infection? No. Patient's initial sepsis screen is negative. Risk Assessment: Do you want to hurt yourself or someone else? Patient reports no desire to harm self or others. Onset of symptoms was January 14, 2025. 17:51 Method Of Arrival: Ambulatory ll1 17:51 Acuity: LIAT 4 ll1 Triage Assessment: 17:49 General: Appears in no apparent distress. Behavior is calm, cooperative, appropriate ll1 for age. Pain: Complains of pain in R knee Quality of pain is described as aching. Derm: Reports needs susi removed from R knee. 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 - Infectious Disease History:: Denies. - Social history:: Smoking status: Patient reports the use of cigarette tobacco products, smokes .25 packs per day. - Family history:: not pertinent. Screenin:[address] [facility] ED Fall Risk Assessment (Adult) History of falling in the last 3 months, ll1 including since admission No falls in past 3 months (0 pts) Confusion or Disorientation No (0 pts) Intoxicated or Sedated No (0 pts) Impaired Gait No (0 pts) Mobility Assist Device Used No (0 pt) Altered Elimination No (0 pt) Score/Fall Risk Level 0 - 2 = Low Risk Maintained a safe environment, Hourly rounding (assess needs \T\ fall precautionary measures) done. Abuse screen: Denies threats or abuse. Nutritional screening: No deficits noted. Tuberculosis screening: No symptoms or risk factors identified. Assessment: 18:07 Reassessment: No changes from previously documented assessment. Patient and/or family ll1 updated on plan of care and expected duration. Pain level reassessed. Patient is alert, oriented x 3, equal unlabored respirations, skin warm/dry/pink. Vital Signs: 17:51 BP 139 / 95; Pulse 85; Resp 17; Temp 98; Pulse Ox 96% ; Weight 58.97 kg; Height 5 ft. 1 ll1 in. ; Pain 5/10; 17:51 Body Mass Index 24.56 (58.97 kg, 154.94 cm) ll1 17:51 Pain Scale: Adult ll1 ED Course: 17:48 Patient arrived in ED. gm2 17:49 Arm band placed on. ll1 17:50 Adarsh Beal MD is Attending Physician. rt 17:52 Triage completed. ll1 18:07 Wound care: to s/p staple removal located on right knee was dressed with Kerlix, non ll1 adherent dressing, Patient tolerated well. 18:08 No provider procedures requiring assistance completed. Patient did not have IV access ll1 during this emergency room visit. 18:09 Patient has correct armband on for positive identification. Provided Education on: ll1 return to ED for worsening symptoms. Administered Medications: No medications were administered Medication: 18:09 VIS not applicable for this client. ll1 Outcome: 18:04 Discharge ordered by . rt 18:08 Discharged to home ambulatory, 1 18:08 Condition: stable 18:08 Discharge instructions given to patient, Instructed on discharge instructions, follow up and referral plans. Demonstrated understanding of instructions, follow-up care, wound care, 18:09 Patient left the ED. 1 Signatures: Idalmis Randhawa RN RN 1 Adarsh Beal MD MD rt Jessa Pierre gm2 Corrections: (The following items were deleted from the chart) 17:53 17:51 Onset of symptoms was January 21, 2025 1 1
--- NOTE | 2025-01-31 18:05 | EDPHYS ---
Physician Documentation [facility] Name: Lottie Jason Age: 49 yrs Sex: Female : 1975 Arrival Date: 01/31/2025 Time: 17:44 Bed 12 Private MD: ED Physician Adarsh Beal HPI: 01/31 18:05 This 49 yrs old Female presents to ER via Ambulatory with complaints of Staple rt Removal. 18:05 Patient presents to the ED for removal of susi that were placed 17 days ago on the rt right knee. Reportedly 15 total susi. States they are healing well, denies other acute complaints, symptoms are mild in severity, no other aggravating elevating factors.. 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 - Infectious Disease History:: Denies. - Social history:: Smoking status: Patient reports the use of cigarette tobacco products, smokes .25 packs per day. - Family history:: not pertinent. ROS: 18:05 Constitutional: Negative for fever, chills, and weight loss, Skin: Negative for injury, rt rash, and discoloration, 18:05 MS/extremity: Positive for Sutured laceration, Exam: 18:05 Constitutional: This is a well developed, well nourished patient who is awake, alert, rt and in no acute distress. Head/Face: Normocephalic, atraumatic. Neuro: Awake and alert, GCS 15, oriented to person, place, time, and situation. Cranial nerves II-XII grossly intact. Motor strength 5/5 in all extremities. Sensory grossly intact. Cerebellar exam normal. Normal gait. Psych: Awake, alert, with orientation to person, place and time. Behavior, mood, and affect are within normal limits. 18:05 Musculoskeletal/extremity: 15 total susi on 2 lacerations to the right knee, no surrounding erythema, wound appears to be well-healing.. Vital Signs: 17:51 BP 139 / 95; Pulse 85; Resp 17; Temp 98; Pulse Ox 96% ; Weight 58.97 kg; Height 5 ft. 1 ll1 in. ; Pain 5/10; 17:51 Body Mass Index 24.56 (58.97 kg, 154.94 cm) ll1 17:51 Pain Scale: Adult ll1 Procedures: 18:05 Suture/Staple removal: Removed 15 susi, from right knee, site appears well healed, rt dressed with gauze bandage, Patient tolerated well. MDM: 17:54 Medical Screening Exam initiated rt 18:05 Data reviewed: vital signs, nurses notes. Counseling: I had a detailed discussion with rt the patient and/or guardian regarding the historical points, exam findings, and any diagnostic results supporting the discharge/admit diagnosis, the need for outpatient follow up. Administered Medications: No medications were administered Disposition Summary: 01/31/25 18:04 Discharge Ordered Notes: Location: Home rt Problem: an ongoing problem rt Symptoms: are resolved rt Condition: Stable rt Diagnosis - Encounter for removal of susi rt Followup: rt - With: Private Physician - When: As needed - Reason: Discharge Instructions: - Discharge Summary Sheet rt - Suture Removal, Care After rt Forms: - Medication Reconciliation Form rt - Antibiotic Education rt - Prescription Opioid Use rt - Patient Portal Instructions rt - Leadership Thank You Letter rt Signatures: Idalmis Randhawa RN RN ll1 Adarsh Beal MD MD rt
[2025-01-31 18:20] VITALS: BP 139/95; TEMP 98; O2SAT 96
== END 2025-01-31 18:09 | disposition home or self-care (01) ==
LOC: ER 17:44
DX: Z48.02 Encounter for removal of sutures (principal)
CPT/HCPCS: 99283